=== PATIENT | male | born 1985 | race African-American/Black ===

== ENCOUNTER 2017-09-27 21:53 | Emergency (ER) | payer OTHER ==
[~2017-09-27] VITALS: Ht 175.3 cm; Wt 113.4 kg
[~2017-09-27 21:53] MED LIST: IBUPROFEN 800800 M1 PO; NORCO 5-325 TA1 EACH PO
[2017-09-27] MEDS ORDERED: NORFLEX100 MG PO (22:56)
[2017-09-27] MEDS ORDERED: NAPROSYN500 MG PO (22:56)
[2017-09-27 23:16] VITALS: BP 141/85
== END 2017-09-27 23:16 | disposition home or self-care (01) ==
LOC: ER 21:53
DX: S16.1XXA Strain of muscle, fascia and tendon at neck level, initial encounter (principal); S39.012A Strain of muscle, fascia and tendon of lower back, initial encounter; S20.212A Contusion of left front wall of thorax, initial encounter; S76.211A Strain of adductor muscle, fascia and tendon of right thigh, initial encounter; F17.210 Nicotine dependence, cigarettes, uncomplicated; V89.2XXA Person injured in unspecified motor-vehicle accident, traffic, initial encounter; Y93.I9 Activity, other involving external motion; Y92.89 Other specified places as the place of occurrence of the external cause; Y99.8 Other external cause status

== ENCOUNTER 2017-10-03 15:31 | Emergency (ER) | payer OTHER ==
[~2017-10-03] VITALS: Ht 175.3 cm; Wt 113.4 kg
[~2017-10-03 15:31] MED LIST changes: +NAPROSYN500 MG PO; +NORFLEX100 MG PO
[2017-10-03] MEDS ORDERED: NORCO 5-325 TA1 EACH PO (18:11)
[2017-10-03 18:19] VITALS: BP 125/83
== END 2017-10-03 18:20 | disposition home or self-care (01) ==
LOC: ER 15:31
DX: S39.012D Strain of muscle, fascia and tendon of lower back, subsequent encounter (principal); S20.219D Contusion of unspecified front wall of thorax, subsequent encounter; M79.604 Pain in right leg; R51 Headache; F17.210 Nicotine dependence, cigarettes, uncomplicated; V49.40XD Driver injured in collision with unspecified motor vehicles in traffic accident, subsequent encounter; Y93.89 Activity, other specified; Y92.89 Other specified places as the place of occurrence of the external cause; Y99.8 Other external cause status